=== PATIENT | male | born 1950 | race African-American/Black ===

== ENCOUNTER 2020-04-17 12:16 | Emergency (ER) | payer OTHER ==
[~2020-04-17] VITALS: Ht 175.3 cm; Wt 86.2 kg
[2020-04-17] MEDS ORDERED: PLAVIX75 MG (12:26)
[2020-04-17] MEDS ORDERED: CIPRO500 MG PO (14:52)
== END 2020-04-17 15:57 | disposition home or self-care (01) ==
LOC: ER 12:16
DX: S91.321A Laceration with foreign body, right foot, initial encounter (principal); W22.8XXA Striking against or struck by other objects, initial encounter; W27.8XXA Contact with other nonpowered hand tool, initial encounter; Y93.89 Activity, other specified; Y92.098 Other place in other non-institutional residence as the place of occurrence of the external cause; Y99.8 Other external cause status

== ENCOUNTER 2023-11-03 16:08 | Outpatient (CLI) | payer OTHER ==
[~2023-11-03 16:08] MED LIST: CIPRO500 MG PO; PLAVIX75 MG
== END 2023-11-03 16:14 | disposition home or self-care (01) ==
LOC: RAD 16:08
PROVIDERS: ATTEND Physical Medicine & Rehabilitation
DX: M54.17 Radiculopathy, lumbosacral region (principal)

== ENCOUNTER 2024-09-23 06:16 | Emergency (ER) | payer OTHER ==
[~2024-09-23] VITALS: Ht 175.3 cm; Wt 88.5 kg
[2024-09-23] MEDS ORDERED: CLOPIDOGREL BIS75 MG PO (06:29)
[2024-09-23] MEDS ORDERED: PANTOPRAZOLE SO40 MG PO (06:29)
[2024-09-23] MEDS ORDERED: VALSARTAN-HCTZ1 EAC2 PO (06:29)
[2024-09-23] MEDS ORDERED: METOPROLOL SUCC50 MG PO (06:29)
[2024-09-23] MEDS ORDERED: ST. JOSEPH ASPI81 M2 PO (06:29)
[2024-09-23] MEDS ORDERED: 0.9 % SODIUM CHLORIDE 1,000 ML IV STA (06:45)
[2024-09-23] MEDS ORDERED: ASPIRIN 81 MG TAB.CHEW PO STA (06:46)
[2024-09-23] MEDS ORDERED: CLOPIDOGREL BISULFATE 75 MG TABLET PO STA (06:46)
[2024-09-23] MEDS ORDERED: HEPARIN SODIUM,PORCINE 5,000 UNITS/ML VIAL SUBCUTANEO STA (06:47)
[2024-09-23] MEDS ORDERED: ATORVASTATIN CALCIUM 40 MG TABLET PO STA (06:47)
[2024-09-23] MEDS ORDERED: NITROGLYCERIN IN 5 % DEXTROSE 50 MG/250 ML BOTTLE IV STA (06:51)
[2024-09-23] MEDS ORDERED: HEPARIN SODIUM,PORCINE 5,000 UNITS/ML VIAL ONE (06:52)
[2024-09-23] MEDS ORDERED: CLOPIDOGREL BISULFATE 75 MG TABLET PO ONE (06:53)
[2024-09-23] MEDS ORDERED: LABETALOL HCL 200 MG/40 ML VIAL IV STA (06:53)
[2024-09-23] MEDS ORDERED: LABETALOL HCL 100 MG/20 ML ML ONE (07:15)
[2024-09-23] MEDS ORDERED: NITROGLYCERIN IN 5 % DEXTROSE 50 MG/250 ML BOTTLE IV ONE (07:16)
[2024-09-23 07:27] LABS: HEMATOCRIT 43.5 % (39.0-48.0); MEAN CELL VOLUME 95.3 fL (80.0-100.00); MEAN CORPUSCULAR HEMOGLOBIN 32.9 pg (27.00-32.0); MEAN CORPUSCULAR HGB CONC 34.5 g/dl (32.0-36.0); PLATELET COUNT 281 K/uL (150-450); RED BLOOD COUNT 4.56 M/uL (4.00-6.00); RED CELL DISTRIBUTION WIDTH 13.6 % (11.5-14.5)
[2024-09-23 07:47] LABS: INR 0.99; PARTIAL THROMBOPLASTIN TIME 25.9 SECONDS (22.0-34.0); PROTHROMBIN TIME 10.8 SECONDS (9.0-11.5)
[2024-09-23 08:02] LABS: ALBUMIN 4.3 gm/dL (3.4-5.0); BILIRUBIN TOTAL 0.8 mg/dL (0.3-1.2); CALCIUM 9.8 mg/dL (8.5-10.1); GFR 72.65; GLOBULINA 3.4 G/DL (2.4-3.5); POTASSIUM 3.32 mEq/L (3.5-5.1); TOTAL PROTEIN 7.7 gm/dL (6.4-8.2)
[2024-09-23] MEDS ORDERED: ONDANSETRON HCL 2 MG/ML VIAL ONE (08:36)
[2024-09-23 09:43] LABS: ABG PH 7.447 (7.35-7.45); ABG PO2 69.4 mmHg (80-100); BASE EXCESS 0.7 mmol/l; BICARBONATE 24.3 mmol/l (23-25); SaO2 94.5 %; Tco2 25.5 mmol/l; o2 21 %
[2024-09-23 09:44] LABS: allen test SATISFACTORY; puncture site RADIAL RIGHT
== END 2024-09-23 12:47 | disposition designated cancer center or children's hospital (05) ==
LOC: ER 06:18
PROVIDERS: Emergency Medicine; Pediatrics Pediatric Critical Care Medicine
DX: I20.0 Unstable angina (principal); I16.9 Hypertensive crisis, unspecified; Z88.2 Allergy status to sulfonamides; I10 Essential (primary) hypertension
CPT/HCPCS: 36415; 71045; 82803; 93005; 96365; 96366; 99285; J3490; J7030